=== PATIENT | male | born 1945 | race Caucasian/White ===

== ENCOUNTER 2017-05-03 05:52 | Day surgery (SDC) | payer OTHER, MEDICARE ==
[2017-05-03] MEDS ORDERED: fentaNYL 100 MCG/2 ML SDV IV ONE ×2 (05:53→06:58)
[2017-05-03] MEDS ORDERED: Midazolam 1 MG/ML 2 ML SDV IV ONE ×6 (05:53→07:05)
[2017-05-03] MEDS ORDERED: Midazolam 1 MG/ML 2 ML SDV ONE (06:15)
[2017-05-03] MEDS ORDERED: fentaNYL 100 MCG/2 ML SDV ONE (06:16)
[2017-05-03] MEDS ORDERED: Sodium Chloride 0.9% 10 ML Syringe FLUSH PRN (07:00)
[2017-05-03] MEDS ORDERED: Dextrose 5%-0.45% NaCl 1,000 ML IV SCH (07:00)
[2017-05-03 09:40] VITALS: BP 140/90
--- NOTE | 2017-05-03 09:52 | OR ---
DATE: 05/03/2017 PROCEDURE: Total colonoscopy, NBI, and multiple pinch biopsies. INSTRUMENT USED: CF-H180AL Olympus video colonoscope. PREMEDICATIONS: Fentanyl 100 mcg intravenous, Versed 3.5 Mg intravenous. Nasal O2 cannula. The procedure was done under pulse oximetry, BP recording, and alarm security or surveillance monitor. INDICATION: The patient with previous colonic sessile polyp removed. Followup colonoscopy examination is done for detection of any residual polyp and removal, endoscopic hemostasis therapy if needed. DESCRIPTION OF PROCEDURE: Initial rectal exam was unremarkable. Rigid anoscopy showed small internal hemorrhoids without bleeding from them. The colonoscope was passed with ease up to the cecum, photographs were taken of the cecum showing more than 1 cm sized sessile polyp. NBI views were obtained, multiple pinch biopsies were obtained and sent for histopathology. No bleeding was noted from any of the visualized areas at the commencement of the examination. No stricture. No vascular ectasia. No large isolated ulcerations seen. No evidence of diffuse inflammatory bowel disease in the form of friability, contact bleeding, or ulcerations. Probing the proximal sides of folds and flexures, using adequate distention and clearing up the stool material, withdrawal of the scope was made, cecum to rectum time over 6 minutes. No bleeding was noted from any of the visualized areas at the completion of examination. IMPRESSION: 1. Internal hemorrhoids. 2. Cecal sessile polyp. The patient tolerated the procedure well. [facility] /[id number]
--- NOTE | 2017-05-03 10:58 | LETTER ---
05/03/2017 Nghia Daniel MD [address] [place] [address] RE: ARI LARES : [address] Daniel: Mr. Ari Lares had colonoscopic examination done this morning and he tolerated the procedure well. I herewith send a copy of the endoscopy note and photographs for your review. Thank you, Sincerely, [facility] /[id number]
== END 2017-05-03 09:25 | disposition home or self-care (01) ==
LOC: DL.ENDO 05:52
PROVIDERS: ATTEND Internal Medicine Gastroenterology
DX: Z12.11 Encounter for screening for malignant neoplasm of colon (principal); D12.0 Benign neoplasm of cecum; K64.8 Other hemorrhoids; Z86.010 Personal history of colon polyps
CPT/HCPCS: 45380; J2250; J3010; J7042; 88305

== ENCOUNTER → 2021-08-04 | Day surgery (SDC) | payer MEDICARE, OTHER ==
[~2021-08-04] MED LIST: Dextrose 5%-0.45% NaCl 1,000 ML IV SCH; Midazolam 1 MG/ML 2 ML SDV IV ONE; Midazolam 1 MG/ML 2 ML SDV ONE; Sodium Chloride 0.9% 10 ML Syringe FLUSH PRN; Sodium Chloride 0.9% 10 ML Syringe FLUSH SCH; fentaNYL 100 MCG/2 ML SDV IV ONE; fentaNYL 100 MCG/2 ML SDV ONE
[2021-08-04 09:28] VITALS: BP 123/57; PULSE 72
== END ==
LOC: DL.ENDO 05:59
PROVIDERS: ATTEND Internal Medicine Gastroenterology
DX: Z09 Encounter for follow-up examination after completed treatment for conditions other than malignant neoplasm (principal); Z86.010 Personal history of colon polyps; I12.9 Hypertensive chronic kidney disease with stage 1 through stage 4 chronic kidney disease, or unspecified chronic kidney disease; E11.22 Type 2 diabetes mellitus with diabetic chronic kidney disease; N18.9 Chronic kidney disease, unspecified; E78.5 Hyperlipidemia, unspecified; K21.9 Gastro-esophageal reflux disease without esophagitis; I25.10 Atherosclerotic heart disease of native coronary artery without angina pectoris; N40.0 Benign prostatic hyperplasia without lower urinary tract symptoms; K43.9 Ventral hernia without obstruction or gangrene; H91.90 Unspecified hearing loss, unspecified ear; Z98.890 Other specified postprocedural states; Z98.61 Coronary angioplasty status; Z90.89 Acquired absence of other organs; Z87.19 Personal history of other diseases of the digestive system; Z79.899 Other long term (current) drug therapy; Z79.84 Long term (current) use of oral hypoglycemic drugs
CPT/HCPCS: 45378; J2250; J3010; J7042